=== PATIENT | female | born 1985 | race Hispanic/Latino ===

== ENCOUNTER 2021-10-25 22:36 | Day surgery (SDC) | payer OTHER ==
[2021-10-25 22:43] VITALS: BMI 39.4
[2021-10-25] MEDS ORDERED: Acetaminophen 325 MG TAB PO SCH (23:45)
== END 2021-10-25 23:59 | disposition home or self-care (01) ==
LOC: CSHLD/OP 22:36
PROVIDERS: ATTEND Obstetrics & Gynecology
DX: O99.891 Other specified diseases and conditions complicating pregnancy (principal); M62.830 Muscle spasm of back; R03.0 Elevated blood-pressure reading, without diagnosis of hypertension; O09.523 Supervision of elderly multigravida, third trimester; O24.414 Gestational diabetes mellitus in pregnancy, insulin controlled; Z3A.31 31 weeks gestation of pregnancy; Z87.891 Personal history of nicotine dependence

== ENCOUNTER 2021-11-18 09:18 | Day surgery (SDC) | payer OTHER ==
[2021-11-18 09:42] VITALS: BMI 38.2
== END 2021-11-18 14:38 | disposition home or self-care (01) ==
LOC: CSHLD/OP 09:18
PROVIDERS: ATTEND Family Medicine
DX: O24.419 Gestational diabetes mellitus in pregnancy, unspecified control (principal); O09.523 Supervision of elderly multigravida, third trimester; Z3A.35 35 weeks gestation of pregnancy
CPT/HCPCS: 76815; 76819

== ENCOUNTER 2021-11-22 01:54 | Day surgery (SDC) | payer OTHER ==
[2021-11-22 02:20] VITALS: BMI 39.4
[2021-11-22] MEDS ORDERED: hydrALAZINE 20 MG/ML VIAL SLOW IVP PRN (03:37)
[2021-11-22] MEDS ORDERED: Lidocaine 2% Viscous Solution 10 ML, Aluminum & Magnesium Hydroxide 30 ML SSW SCH (04:00)
[2021-11-22 04:46] LABS: Bilirubin 6 (Negative); Blood, Urine Negative (Negative); Clarity Cloudy (Clear); Glucose, Urine (Dipstick) 50 mg/dL (Negative); Ketone, Urine 150 mg/dL (Negative); Leukocyte 100 (Negative); Nitrite Positive (Negative); Protein, Urine (Dipstick) 30 mg/dl (Neg-Trace); Specific Gravity, Urine 1.015 (1.002-1.036); Urobilinogen 12 mg/dL (Less than 2); pH, Urine 6.5 (5.0-9.0)
[2021-11-22 04:57] LABS: Bacteria/HPF 4+ HPF (None Seen); RBC/HPF 0-3 HPF (0-3); Squamous Epithelial Greater than 50 HPF (0-3)
[2021-11-22] MEDS ORDERED: cefTRIAXone\\ROCEPHIN 2 GM VIAL IM SCH (05:30)
[2021-11-22] MEDS ORDERED: Lidocaine 1% (PF) 30 ML VIAL ONE (05:44)
== END 2021-11-22 06:00 | disposition home or self-care (01) ==
LOC: CSHLD/OP 01:54
PROVIDERS: ATTEND Obstetrics & Gynecology
DX: O99.891 Other specified diseases and conditions complicating pregnancy (principal); M54.50 Low back pain, unspecified; R10.13 Epigastric pain; R31.0 Gross hematuria; O23.43 Unspecified infection of urinary tract in pregnancy, third trimester; N39.0 Urinary tract infection, site not specified; O24.113 Pre-existing type 2 diabetes mellitus, in pregnancy, third trimester; O09.523 Supervision of elderly multigravida, third trimester; O99.613 Diseases of the digestive system complicating pregnancy, third trimester; K80.20 Calculus of gallbladder without cholecystitis without obstruction; Z3A.35 35 weeks gestation of pregnancy; Z79.4 Long term (current) use of insulin
CPT/HCPCS: 36416; 76770; 81001; 99283; J0696; J2001

== ENCOUNTER 2021-11-25 08:56 | Day surgery (SDC) | payer OTHER ==
[2021-11-25 09:40] VITALS: BMI 39.1
[2021-11-25] MEDS ORDERED: hydrALAZINE 20 MG/ML VIAL SLOW IVP PRN (14:18)
== END 2021-11-25 14:00 | disposition home or self-care (01) ==
LOC: CSHLD/OP 08:56
PROVIDERS: ATTEND Family Medicine
DX: O24.113 Pre-existing type 2 diabetes mellitus, in pregnancy, third trimester (principal); Z3A.36 36 weeks gestation of pregnancy; Z79.4 Long term (current) use of insulin; Z79.84 Long term (current) use of oral hypoglycemic drugs; Z98.890 Other specified postprocedural states
CPT/HCPCS: 76819

== ENCOUNTER 2021-12-02 08:41 | Day surgery (SDC) | payer OTHER ==
[2021-12-02 10:19] LABS: SARS-CoV-2 NAA Rapid Test Not Detected (NotDetected)
== END 2021-12-02 12:45 | disposition home health service (06) ==
LOC: CSHLD/OP 08:41
PROVIDERS: ATTEND Family Medicine
DX: O24.913 Unspecified diabetes mellitus in pregnancy, third trimester (principal); Z3A.37 37 weeks gestation of pregnancy; Z20.822 Contact with and (suspected) exposure to COVID-19
CPT/HCPCS: 59025; 76819; 99281; U0002

== ENCOUNTER 2021-12-05 18:10 | Inpatient (IN) | payer OTHER ==
[2021-12-05 18:36] VITALS: BMI 43.4
[2021-12-05] MEDS ORDERED: Butorphanol Tartrate 1 MG/ML VIAL SLOW IVP PRN (19:10)
[2021-12-05] MEDS ORDERED: Ondansetron PF 4 MG/2 ML Vial IVP PRN (19:10)
[2021-12-05] MEDS ORDERED: Acetaminophen 500 MG TAB PO PRN (19:10)
[2021-12-05] MEDS ORDERED: Promethazine HCl 25 MG/ML VIAL IM PRN (19:10)
[2021-12-05] MEDS ORDERED: Lidocaine 1% (PF) 30 ML VIAL SC PRN (19:10)
[2021-12-05] MEDS ORDERED: hydrALAZINE 20 MG/ML VIAL SLOW IVP PRN (19:10)
[2021-12-05] MEDS ORDERED: NS w/ Oxytocin 30 units 500 ML IV SCH ×2 (19:15)
[2021-12-05] MEDS ORDERED: Lactated Ringer's 1,000 ML IV SCH (19:15)
[2021-12-05] MEDS ORDERED: Carboprost 250 MCG/ML AMP IM PRN (19:19)
[2021-12-05] MEDS ORDERED: HYDROcodone/Acetaminophen 5/325 mg Tablet PO PRN (19:19)
[2021-12-05] MEDS ORDERED: Methylergonovine 0.2 MG/ML VIAL IM PRN (19:19)
[2021-12-05] MEDS ORDERED: Diphenoxylate HCl/Atropine Tablet PO PRN (19:19)
[2021-12-05] MEDS ORDERED: Ibuprofen 800 MG TAB PO PRN (19:19)
[2021-12-05] MEDS ORDERED: Misoprostol 200 MCG TAB PR PRN (19:19)
[2021-12-05] MEDS: Misoprostol 100 MCG TAB VAG SCH (19:51)
[2021-12-05 20:07] LABS: Hemoglobin 12.6 g/dL (12.0-15.5); Mean Corpuscular HGB CONC 33.4 g/dL (32.0-36.0); Mean Corpuscular Hemoglobin 26.5 pg (27.0-33.0); Mean Corpuscular Volume 79.4 fl (81.6-98.3); Mean Platelet Volume 11.2 fl (7.4-10.4); Platelet Count 390 10x3/uL (150-450); Red Blood Cell (RBC) Count 4.75 10x6/uL (3.90-5.03); White Blood Cell (WBC) Count 7.8 10x3/uL (3.5-10.5)
[2021-12-05 20:42] LABS: Hep B Surf Ag Non-Reactive S/CO (NonReactive)
[2021-12-05 20:43] LABS: Syphilis Antibody Nonreactive (Nonreactive); Syphilis Antibody Index 0.03 S/CO (<1.00 Non-Reactive)
[2021-12-05 20:49] LABS: HBSAg Index 0.17 S/CO (0-0.99)
[2021-12-06] MEDS: Misoprostol 100 MCG TAB VAG SCH ×3 (00:19→23:51)
[2021-12-06] MEDS ORDERED: HumaLOG 300 UNITS/3 ML VIAL SC SCH (15:00)
[2021-12-06 20:33] LABS: RapidComm Collect By CBN; pH (Cord, venous) 7.409 (7.250-7.350)
[2021-12-06 20:34] LABS: RapidComm Collect By CBN
[2021-12-06] MEDS ORDERED: NS w/ Oxytocin 30 units 500 ML IV SCH (22:13)
[2021-12-06] MEDS ORDERED: Milk Of Magnesia 30 ML UDCUP PO PRN (22:13)
[2021-12-06] MEDS ORDERED: HYDROcodone/Acetaminophen 5/325 mg Tablet PO PRN ×2 (22:13)
[2021-12-06] MEDS ORDERED: Benzocaine-Menthol 82.5 ML CAN TOP PRN (22:13)
[2021-12-06] MEDS ORDERED: Ondansetron PF 4 MG/2 ML Vial IVP PRN (22:13)
[2021-12-06] MEDS ORDERED: Boostrix 0.5 ML (Tdap) VIAL IM ONE (22:13)
[2021-12-06] MEDS ORDERED: Bisacodyl 10 MG SUPP PR PRN (22:13)
[2021-12-06] MEDS ORDERED: diphenhydrAMINE 25 MG CAP PO PRN (22:13)
[2021-12-06] MEDS ORDERED: Lanolin Ointment 7 GM TUBE TOP PRN (22:13)
[2021-12-06] MEDS ORDERED: hydrALAZINE 20 MG/ML VIAL SLOW IVP PRN (22:13)
[2021-12-06] MEDS ORDERED: Preparation H Ointment 28 GM TUBE PR PRN (22:13)
[2021-12-06] MEDS ORDERED: Promethazine HCl 25 MG/ML VIAL IM PRN (22:13)
[2021-12-06] MEDS ORDERED: Ibuprofen 800 MG TAB PO SCH (22:45)
[2021-12-06] MEDS ORDERED: Docusate 100 MG CAP PO SCH (22:45)
[2021-12-07] MEDS: Ibuprofen 800 MG TAB PO SCH ×3 (05:39→21:56)
[2021-12-07] MEDS: Ferrous Sulfate 325 MG TAB PO SCH ×2 (08:43→15:48)
[2021-12-07] MEDS: Docusate 100 MG CAP PO SCH ×2 (08:44→21:02)
[2021-12-07] MEDS: metFORMIN 500 MG TAB PO SCH ×2 (08:44→17:39)
[2021-12-07] MEDS: Prenatal Vitamin 1 TAB PO SCH (08:44)
[2021-12-08] MEDS: Ibuprofen 800 MG TAB PO SCH ×2 (05:40→15:01)
[2021-12-08] MEDS: Ferrous Sulfate 325 MG TAB PO SCH (07:19)
[2021-12-08 07:54] VITALS: BP 104/58; TEMP 97.9
[2021-12-08] MEDS: Docusate 100 MG CAP PO SCH (08:42)
[2021-12-08] MEDS: Prenatal Vitamin 1 TAB PO SCH (08:42)
[2021-12-08] MEDS: metFORMIN 500 MG TAB PO SCH (08:42)
== END 2021-12-08 15:15 | disposition home or self-care (01) | DRG 807 ==
LOC: CSHLD 18:10 → CSHPP 12-06 22:50
PROVIDERS: ADMIT Family Medicine; ATTEND Family Medicine
PROC: 10E0XZZ Delivery of Products of Conception, External Approach (ICD-10-PCS; principal; 2021-12-06)
PROC: 10907ZC Drainage of Amniotic Fluid, Therapeutic from Products of Conception, Via Natural or Artificial Opening (ICD-10-PCS; 2021-12-06)
PROC: 3E0P7VZ Introduction of Hormone into Female Reproductive, Via Natural or Artificial Opening (ICD-10-PCS; 2021-12-06)
DX: O24.12 Pre-existing type 2 diabetes mellitus, in childbirth (principal); Z37.0 Single live birth; O99.214 Obesity complicating childbirth; Z3A.37 37 weeks gestation of pregnancy; Z79.4 Long term (current) use of insulin; E66.9 Obesity, unspecified; Z98.890 Other specified postprocedural states
CPT/HCPCS: 36416; 82805; 85027; 86780; 86850; 86900; 86901; 87340; J0595